=== PATIENT | female | born 1950 | race Caucasian/White ===

== ENCOUNTER 2016-09-14 12:19 | Emergency (ER) | payer OTHER ==
[~2016-09-14] VITALS: Ht 165.1 cm; Wt 70.8 kg
--- NOTE | 2016-09-14 15:44 | ED MVC/FALL/TRAUMA COMPLAINT ---
History of Present Illness General Chief Complaint: Fall Stated Complaint: FALL/LFT ANKLLE AND ELBOW PAIN Source: patient Exam Limitations: no limitations Vital Signs & Intake/Output Vital Signs & Intake/Output Vital Signs Date Time Temp Pulse Resp B/P Pulse O2 O2 Flow FiO2 Ox Delivery Rate 09/14 1224 96.9 67 20 151/80 96 Room Air Triage Note: PT TO ED C/O LEFT ELBOW PAIN AND LEFT ANKLE PAIN S/P SLIP AND FALL DOWN AB OUT 3 STAIRS THIS AM. DENIES HEAD STRIKE. PT HAS BANDAGE TO LEFT ELBOW. LEFT ANKLE APPEARS SWOLLEN. REFUSING MEDS IN TRIAGE. Triage Nurses Notes Reviewed? yes HPI: Patient is a 65-year-old female presents complaining of left elbow laceration and left ankle swelling status post fall. Patient slipped on ice approximately 6:30 this morning falling down 3 steps. Pain is moderate, patient took Tylenol earlier today with significant improvement. Patient reports her last tetanus immunization was within the last 5 years. Patient denies head impact, loss of consciousness, head pain, neck pain, numbness. (ANDRE LAMA) Allergies Coded Allergies: meperidine (HIVES AND MED WAS STOPPED IMMEDIATELY 09/14/16) Reconcile Medications Atenolol 25 MG TABLET 0.5 TAB PO DAILY BP (Reported) Atorvastatin Calcium 10 MG TABLET 1 TAB PO DAILY CHOLESTEROL (Reported) Cholecalciferol (Vitamin D3) (Vitamin D) (Unknown Strength) TABLET (Unknown Dose) PO DAILY SUPPLEMENT (Reported) Multivitamin With Minerals (Hair, Skin & Nails) 1 EACH TABLET 1 TAB PO DAILY SUPPLEMENT (Reported) (ÁNGEL ARAYA,RAY) Past History Travel History Traveled to [place] past 21 day No Medical History Any Pertinent Medical History? see below for history Cardiovascular: hypertension Cancer(s): bladder cancer Surgical History Surgical History: nephrectomy Psychosocial History What is your primary language Bangladeshi Tobacco Use: Never used ETOH Use: denies use Illicit Drug Use: denies illicit drug use Family History Hx Contributory? No (ANDRE LAMA) Review of Systems Review of Systems Constitutional: Reports: no symptoms. Eyes: Denies: blurred vision. Cardiovascular: Denies: chest pain, syncope. Gastrointestinal/Abdominal: Denies: abdominal pain. Musculoskeletal: Reports: see HPI. Skin: Reports: see HPI. Neurological/Psychological: Denies: headache, numbness. (ANDRE LAMA) Physical Exam Physical Exam General Appearance: well developed/nourished, alert, awake Head: atraumatic, normal appearance Eyes: Bilateral: normal appearance, PERRL, EOMI. Ears, Nose, Throat, Mouth: hearing grossly normal, moist mucous membrane Neck: normal inspection, supple, full range of motion, no midline tenderness Respiratory: chest non-tender, no respiratory distress Peripheral Pulses: 2+ radial (L), 2+ dorsalis pedis (L) Gastrointestinal: soft, non-tender Back: normal inspection, normal range of motion, no vertebral tenderness, no paraspinal tenderness Extremities: 1 cm laceration left posterior elbow. Full range of motion of elbow. No bony tenderness. Swelling left lateral malleolus. Mild tenderness. Full range of motion. Neurologic/Psych: no motor/sensory deficits, awake, alert, oriented x 3 Skin: warm/dry Core Measures ACS in differential dx? No Severe Sepsis Present: No Septic Shock Present: No (ANDRE LAMA) Progress Differential Diagnosis: sprain, strain, fracture, contusion, foreign body, open fracture Diagnostic Imaging: Viewed by Me: Radiology Read. Discussed w/RAD: Radiology Read. Radiology Impression: PATIENT: KONG FERRER PRESENT AGE: 65 PATIENT ACCOUNT NO: [id number] : 49 LOCATION: [facility] ORDERING PHYSICIAN: ANDRE DIANA SERVICE DATE: 09/14/16 EXAM TYPE: RAD - XRY-ANKLE 3 OR MORE VIEWS L; XRY-ELBOW 3 OR MORE VIEWS, L EXAMINATION: XRY-ELBOW 3 OR MORE VIEWS, L, XRY-ANKLE 3 OR MORE VIEWS L CLINICAL INFORMATION: Trauma. COMPARISON: None. TECHNIQUE: 3 views of the left ankle and 4 views of the left elbow. FINDINGS: Left ankle: There is considerable soft tissue swelling of the lateral malleolus. No fracture or dislocation is seen. Ankle mortise is intact. There is mild soft tissue swelling medially as well. A small joint effusion is present. Otherwise the soft tissues are normal. Left elbow: There is no evidence of fracture, dislocation, or joint effusion. There is soft tissue swelling adjacent to the olecranon and subcutaneous emphysema probably due to an abrasion. IMPRESSION: 1. Soft tissue swelling with joint effusion, left ankle. 2. Elbow negative for fracture or joint effusion. 3. Subcutaneous air adjacent to the olecranon thought to be due to an abrasion. DICTATED BY: VIVIAN RM MD DATE/TIME DICTATED:09/14/161651 AUDIO VISUAL FACILITIES ENGINEER:SUKUMAR DATE/ TIME TRANSCRIBED:09/14/161651 CONFIDENTIAL, DO NOT COPY WITHOUT APPROPRIATE AUTHORIZATION. <Electronically signed in Other Vendor System> SIGNED BY: VIVIAN RM MD 09/14/161700 (ANDRE LAMA) Plan of Care: Orders Procedure Date/time Status Durable Medical Equipment 09/14 [address] Henson. See procedure note. Results of x-rays discussed with patient. Air splint placed by [facility] for ankle sprain. (ANDRE LAMA) Departure Departure Time of Disposition: 1710 Disposition: HOME OR SELF CARE Condition: Stable Clinical Impression Primary Impression: Laceration of elbow Secondary Impressions: Left ankle sprain Referrals: ALEE ARAYA,JENI CLEANING MD,KYUNG Dudley (PCP/Family) Additional Instructions: Rest ice her ankle for 20 minutes 4-5 times a day, wear air splint for support. Bacitracin and a clean dressing to her left elbow daily. Placed bacitracin for the first 3 days. Return to the emergency department in 10 days for suture removal. Return immediately if pus from the wound, redness spreading from the wound, fevers, increasing pain, or worsening of symptoms. Follow-up with your primary doctor or with Dr. Loza(orthopedist) if no improvement with your ankle within 2-3 days. Departure Forms: Customer Survey General Discharge Information (ANDRE LAMA) PA/OBSERVATION NURSE Co-Sign Statement Statement: ED Attending supervision documentation- [X] I saw and evaluated the patient. I have also reviewed all the pertinent lab results and diagnostic results. I agree with the findings and the plan of care as documented in the PA's/OBSERVATION NURSE's documentation. [X] I have reviewed the ED Record and agree with the PA's/OBSERVATION NURSE's documentation. [] Additions or exceptions (if any) to the PAs/OBSERVATION NURSE's note and plan are summarized below: [] (ÁNGEL ARAYA,RAY) Procedures Laceration/Wound Repair Progress: Area prepped with Betadine. 1% lidocaine with epinephrine 3 mL injected to the wound. Wound irrigated with 600 mL of sterile saline. 2 simple interrupted 4-0 Monosof sutures placed. Bacitracin dressing. Well-tolerated by patient. (ANDRE LAMA)
[2016-09-14] MEDS ORDERED: HAIR, SKIN & N1 EACH PO (16:11)
[2016-09-14] MEDS ORDERED: ATORVASTATIN CA10 M1 PO (16:11)
[2016-09-14] MEDS ORDERED: ATENOLOL25 M1 PO (16:11)
[2016-09-14] MEDS ORDERED: VITAMIN D2000 UNI1 PO (16:11)
--- NOTE | 2016-09-14 17:01 | RADIOLOGY REPORT ---
EXAMINATION: XRY-ELBOW 3 OR MORE VIEWS, L, XRY-ANKLE 3 OR MORE VIEWS L CLINICAL INFORMATION: Trauma. COMPARISON: None. TECHNIQUE: 3 views of the left ankle and 4 views of the left elbow. FINDINGS: Left ankle: There is considerable soft tissue swelling of the lateral malleolus. No fracture or dislocation is seen. Ankle mortise is intact. There is mild soft tissue swelling medially as well. A small joint effusion is present. Otherwise the soft tissues are normal. Left elbow: There is no evidence of fracture, dislocation, or joint effusion. There is soft tissue swelling adjacent to the olecranon and subcutaneous emphysema probably due to an abrasion. IMPRESSION: 1. Soft tissue swelling with joint effusion, left ankle. 2. Elbow negative for fracture or joint effusion. 3. Subcutaneous air adjacent to the olecranon thought to be due to an abrasion.
[2016-09-14 17:20] VITALS: BP 135/89
== END 2016-09-14 17:20 ==
LOC: ERH 12:19
DX: S51.012A Laceration without foreign body of left elbow, initial encounter (principal); S93.402A Sprain of unspecified ligament of left ankle, initial encounter; W10.9XXA Fall (on) (from) unspecified stairs and steps, initial encounter
CPT/HCPCS: 73080-LT; 73610-LT

== ENCOUNTER 2016-09-23 08:12 | Emergency (ER) | payer OTHER ==
[~2016-09-23] VITALS: Ht 165.1 cm; Wt 70.8 kg
[~2016-09-23 08:12] MED LIST: ATENOLOL25 M1 PO; ATORVASTATIN CA10 M1 PO; HAIR, SKIN & N1 EACH PO; VITAMIN D2000 UNI1 PO
[2016-09-23 08:14] VITALS: BP 148/73
--- NOTE | 2016-09-23 08:19 | ED ANIMAL BITE/WOUND CHECK ---
History of Present Illness General Chief Complaint: Suture Removal/Wound Recheck Stated Complaint: SUTURE REMOVAL Source: patient Exam Limitations: no limitations Vital Signs & Intake/Output Vital Signs & Intake/Output Vital Signs Date Time Temp Pulse Resp B/P Pulse O2 O2 Flow FiO2 Ox Delivery Rate 09/23 0814 96.3 74 18 148/73 99 Room Air Allergies Coded Allergies: meperidine (HIVES AND MED WAS STOPPED IMMEDIATELY 09/14/16) Reconcile Medications Atenolol 25 MG TABLET 0.5 TAB PO DAILY BP (Reported) Atorvastatin Calcium 10 MG TABLET 1 TAB PO DAILY CHOLESTEROL (Reported) Cholecalciferol (Vitamin D3) (Vitamin D) (Unknown Strength) TABLET (Unknown Dose) PO DAILY SUPPLEMENT (Reported) Multivitamin With Minerals (Hair, Skin & Nails) 1 EACH TABLET 1 TAB PO DAILY SUPPLEMENT (Reported) Triage Note: 65 Y/O FEMALE REQUESTING SUTURE REMOVAL (2) PLACED TO L ELBOW ON THE . DENIES COMPLAINTS. Triage Nurses Notes Reviewed? yes Onset: Abrupt Duration: day(s): Timing: recent history HPI: 65-year-old female comes into emergency room for further evaluation of suture removal to left elbow. Denies any redness or discharge fever or chills. Denies any other associated symptoms. Denies any pain. Past History Travel History Traveled to [place] past 21 day No Medical History Any Pertinent Medical History? see below for history Neurological: NONE EENT: NONE Cardiovascular: hypertension Respiratory: NONE Gastrointestinal: NONE Hepatic: NONE Renal: NONE Musculoskeletal: NONE Psychiatric: NONE Endocrine: NONE Blood Disorders: NONE Cancer(s): bladder cancer [employer]/Reproductive: NONE Surgical History Surgical History: nephrectomy Psychosocial History What is your primary language Upper Sorbian Tobacco Use: Never used Family History Hx Contributory? No Review of Systems Review of Systems Constitutional: Reports: no symptoms. EENTM: Reports: no symptoms. Respiratory: Reports: no symptoms. Cardiovascular: Reports: no symptoms. GI: Reports: no symptoms. Genitourinary: Reports: no symptoms. Musculoskeletal: Reports: no symptoms. Skin: Reports: see HPI. Neurological/Psychological: Reports: no symptoms. Hematologic/Endocrine: Reports: no symptoms. Immunologic/Allergic: Reports: no symptoms. All Other Systems: Reviewed and Negative Physical Exam Physical Exam General Appearance: well developed/nourished Head: atraumatic Eyes: Bilateral: normal appearance. Ears, Nose, Throat: normal ENT inspection, hearing grossly normal Neck: normal inspection Respiratory: no respiratory distress Back: normal inspection Extremities: normal range of motion, 2 sutures left elbow, no erythema, no discharge, well approximated Neurologic/Psych: awake, alert, oriented x 3, normal mood/affect Skin: intact, normal color, warm/dry Lymphatic: no anterior cervical dion Progress Differential Diagnosis: abscess, cellulitis, joint infection, tenosysnovitis Plan of Care: 09/23/2016 8:35:21 AM Clinically looks well. Nontoxic-appearing. In no apparent distress. Departure Departure Disposition: HOME OR SELF CARE Condition: Stable Clinical Impression Primary Impression: Visit for suture removal Referrals: CLEANING KYUNG ARAYA (PCP/Family) Additional Instructions: Return if any other concerns worsening symptoms. Departure Forms: Customer Survey General Discharge Information
== END 2016-09-23 08:35 ==
LOC: ERH 08:12
DX: S51.012A Laceration without foreign body of left elbow, initial encounter (principal); X58.XXXA Exposure to other specified factors, initial encounter
CPT/HCPCS: 99281